=== PATIENT | male | born 1985 | race Caucasian/White ===

== ENCOUNTER 2017-12-05 20:26 | Emergency (ER) | payer SELFPAY ==
[2017-12-05 20:32] VITALS: BMI 25.9
[2017-12-05 20:34] VITALS: TEMP 98.9; O2SAT 100
[2017-12-05] MEDS ORDERED: Tmp-Smz 800 mg-160 mg DS Tab PO STA (21:14)
[2017-12-05] MEDS ORDERED: Lidocaine 2% Inj (20ml) IJ STA (21:48)
--- NOTE | 2017-12-05 22:46 | ED PDOC ---
Arrival/HPI - General Chief Complaint: Finger,Hand,&Wrist Time Seen by Provider: 12/05/17 21:14 Historian: Patient - History of Present Illness Narrative History of Present Illness (Text): 12/05/17 22:41 32yr old male presents today with a 2 day history of left thumb pain. pt states that 2 days ago he developed pain to the distal aspect of the finger. admits to nail bitting. no fever/chills. pt states he developed increased swelling and increased pain. pt states he took ketoprofen for pain. pt denies numbness, weakness, tingling in extremity. Past Medical History - Provider Review Nursing Documentation Reviewed: Yes - Travel History Have you recently traveled outside [place] w/in the past 3 mons?: No - Tetanus Immunization Tetanus Immunization: Unknown - Cardiac Hx Cardiac Disorders: No - Pulmonary Hx Respiratory Disorders: No - Neurological Hx Neurological Disorder: No - HEENT Hx HEENT Disorder: No - Renal Hx Renal Disorder: No - Endocrine/Metabolic Hx Endocrine Disorders: No - Hematological/Oncological Hx Blood Disorders: No - Integumentary Hx Dermatological Disorder: No - Musculoskeletal/Rheumatological Hx Musculoskeletal Disorders: No - Gastrointestinal Hx Gastrointestinal Disorders: No - Genitourinary/Gynecological Hx Genitourinary Disorders: No - Psychiatric Hx Psychophysiologic Disorder: No Hx Substance Use: No Family/Social History - Physician Review Nursing Documentation Reviewed: Yes Family/Social History: Unknown Family HX Smoking Status: Never Smoked Hx Alcohol Use: No Hx Substance Use: No Allergies/Home Meds Allergies/Adverse Reactions: Allergies No Known Allergies Allergy (Verified 12/05/17 20:32) Review of Systems - Review of Systems Constitutional: absent: Fatigue, Fevers Respiratory: absent: SOB, Cough Cardiovascular: absent: Chest Pain, Palpitations Gastrointestinal: absent: Abdominal Pain, Nausea, Vomiting Musculoskeletal: Arthralgias Skin: Other (paronychia) Psychiatric: absent: Anxiety, Depression Physical Exam Vital Signs Reviewed: Yes Vital Signs Temp Pulse Resp BP Pulse Ox 12/05/17 20:34 98.9 F 100 H 20 133/93 H 100 12/05/17 20:33 98.9 F 100 H 18 133/93 H 100 Temperature: Afebrile Blood Pressure: Hypertensive Pulse: Tachycardic Respiratory Rate: Normal Appearance: Positive for: Well-Appearing, Non-Toxic, Comfortable Pain Distress: None Mental Status: Positive for: Alert and Oriented X 3 - Systems Exam Head: Present: Atraumatic Mouth: Present: Moist Mucous Membranes Neck: Present: Normal Range of Motion Respiratory/Chest: Present: Clear to Auscultation, Good Air Exchange. No: Respiratory Distress, Accessory Muscle Use Cardiovascular: Present: Regular Rate and Rhythm, Normal S1, S2. No: Murmurs Upper Extremity: Present: Normal ROM, NORMAL PULSES, Tenderness (left thumb; + edema, erythema, + fluctuance. full rom of thumb; no warmth. sensation and distal pulses intact. no other complaints. ), Swelling, Erythema, Neurovascularly Intact, Capillary Refill < 2s. No: Deformity Neurological: Present: GCS=15 Skin: Present: Warm, Dry Psychiatric: Present: Alert, Oriented x 3 Medical Decision Making ED Course and Treatment: 12/05/17 22:49 pt non toxic well appearing; no distress. with paronychia. toradol IM Bactrim po keflex I&D under cuticle for paronychia. procedure note; left thumb; Using sterile technique; a digital block was performed with 2% lido 2cc. adequate anesthesia; using an 15 blade, a small incision was made under the cuticle along the medial aspect; + small amount of purulent discharge released; 1/4in gauze wick placed; dressing applied; Bacitracin and dressing applied Patient was advised to keep the wound clean and dry, apply bacitracin twice daily. pt was advised to return in 2 days for wound check and packing removal. Advised to return immediately if signs of infection develop or return if any other concerning symptoms develop Patient verbalizes understanding of discharge instructions and need for immediate followup. pt seen and evaluated by dr. florez all aspects of this case were discussed the attending of record. Impression: Paronychia Motrin every 6 hours as needed for pain Bactrim twice daily 7 days kelfex; 4 times daily x 7 days. Keep the wound clean and dry, apply bacitracin twice daily return in 2 days for wound check and packing removal. Return immediately if signs of infection develop: High fevers, increasing pain, redness, swelling, purulent discharge Follow up with the hand specialist within the next 2 days. Followup with primary care physician within the next 2 days Return if any other concerning symptoms develop - Medication Orders Current Medication Orders: Discontinued Medications Ketorolac Tromethamine (Toradol) 60 mg IM STAT STA Stop: 12/05/17 21:15 Last Admin: 12/05/17 21:31 Dose: 60 mg MAR Pain Assessment Document 12/05/17 21:31 (Rec: 12/05/17 21:32 [id number]) Pain Reassessment Is this a pain reassessment? Yes Location Left, Right or Bilateral Left Pain Location Body Site Hand Description Description Throbbing Intensity of Pain at present 7 Pain Behavior Withdrawal from Touch Aggravating Factors Contant IM Administration Charges Document 12/05/17 21:31 (Rec: 12/05/17 21:32 [id number]) Injection Site MAR Injection Site Left Arm Charges for Administration # of IM Administrations 1 Lidocaine HCl (Lidocaine 2% 20ml Vial) 3 ml IJ ONCE STA Stop: 12/05/17 21:49 Last Admin: 12/05/17 21:57 Dose: 3 ml Trimethoprim/Sulfamethoxazole (Bactrim Ds Tab) 1 tab PO STAT STA PRN Reason: Protocol Stop: 12/05/17 21:15 Last Admin: 12/05/17 21:30 Dose: 1 tab Disposition/Present on Arrival - Present on Arrival Any Indicators Present on Arrival: No History of DVT/PE: No History of Uncontrolled Diabetes: No Urinary Catheter: No History of Decub. Ulcer: No History Surgical Site Infection Following: None - Disposition Have Diagnosis and Disposition been Completed?: Yes Diagnosis: Paronychia Disposition: HOME/ ROUTINE Disposition Time: 23:13 Patient Plan: Discharge Patient Problems: Current Active Problems Problem Status Onset Paronychia Acute Condition: GOOD Discharge Instructions (ExitCare): Paronychia (DC) Additional Instructions: Motrin every 6 hours as needed for pain Bactrim twice daily 7 days kelfex; 4 times daily x 7 days. Keep the wound clean and dry, apply bacitracin twice daily return in 2 days for wound check and packing removal. Return immediately if signs of infection develop: High fevers, increasing pain, redness, swelling, purulent discharge Follow up with the hand specialist within the next 2 days. Followup with primary care physician within the next 2 days Return if any other concerning symptoms develop Prescriptions: Cephalexin [Keflex] 500 mg PO QID #28 capsule Ibuprofen [Motrin] 600 mg PO Q6H PRN #20 tab PRN Reason: pain/fever reduction Sulfamethoxazole/Trimethoprim [Bactrim DS 800 mg-160 mg] 1 tab PO BID #14 tab Referrals: Kip Baez MD [Staff Provider] - Follow up with primary Emily Kendall MD [Staff Provider] - Follow up with primary [facility] [place] [Outside] - Follow up with primary Forms: [facility] (Persian), WORK NOTE
[2017-12-05 23:39] VITALS: BP 101/66; PULSE 84; RESP 18
== END 2017-12-05 23:20 | disposition home or self-care (01) ==
LOC: ED 20:26
DX: L03.012 Cellulitis of left finger (principal)
CPT/HCPCS: 10060; 96372; 99284; J1885